=== PATIENT | male | born 1985 | race Caucasian/White ===

== ENCOUNTER 2017-04-23 17:17 | Emergency (ER) | payer SELFPAY ==
[~2017-04-23] VITALS: Ht 175.3 cm; Wt 81.6 kg
[2017-04-23 17:36] VITALS: BP 121/78
[2017-04-23] MEDS ORDERED: NACL 0.9% 1,000 ML IV ONE (17:55)
--- NOTE | 2017-04-23 18:15 | NUR ---
PT TO BED 6 BY EMS
--- NOTE | 2017-04-23 18:43 | NUR ---
32 YO MALE BIB EMS C/O ALCOHOL INTOXICATION TODAY, PER MEDIC PT STATES HE DRANK A BOTTLE OF VODKA TODAY. A&OX1, VSS, GURNEY TO LOWEST LEVEL, BED RAIL UP, RESTING WITH EYES CLEANED AND CHANGED PT IN TO A GOWN, NO DISTRESS NOTED AT THIS TIME.
--- NOTE | 2017-04-23 19:17 | NUR ---
REPORT GIVEN TO GERI SIMMONS.
--- NOTE | 2017-04-23 19:18 | NUR ---
RECEIVED REPORT FROM IRIS SHEARER. PATIENT IS ASLEEP AT THIS TIME. NO SIGNS OF DISTRESS. CONDOM CATH IN PLACE AT THIS TIME. WILL CONTINUE TO MONITOR.
--- NOTE | 2017-04-23 20:15 | NUR ---
PT REMOVED HIS CONDOM CATH AND HIS CHEST LEADS AND PULSE OXIMETER. CHARGE NURSE AWARE. DR. EL AT BEDSIDE EVALUATING PATIENT.
--- NOTE | 2017-04-23 20:18 | NUR ---
CLEAR YELLOW URINE OUTPUT , 400ML VIA CONDOM CATH.
--- NOTE | 2017-04-23 20:34 | NUR ---
PT AWAKE, TALKING TO HIMSELF. RESTING COMFORTABLY ON BED. NO SIGNS OF DISTRESS NOTED.
--- NOTE | 2017-04-23 21:10 | NUR ---
PT ASKING FOR SOMTHING TO EAT. DR. EL SAID OK TO GIVE PATIENT. ATM MANAGER MULUGETA RN NOTIFIED.
--- NOTE | 2017-04-23 21:30 | NUR ---
PT REMOVED HIS IV CATH, IV CATH INTACT, NO SIGNS OF BLEEDING. PT REFUSED TO BE COVERED IV SITE WITH GAUZE, CHARGE NURSE AWARE.
--- NOTE | 2017-04-23 21:40 | NUR ---
PT PROVIDED WITH SNACKS AGAIN. HE ASKED FOR ANOTHER SANDWICH. PT TALKS TO HIMSELF. WILL CONTINUE YO MONITOR..
--- NOTE | 2017-04-23 22:40 | NUR ---
PT STARTED TO GET OUT OF BED, HE REMOVED HIS GOWN, CURSING. PAGED SECURITY. PT PROVIDED WITH NEW CLOTHES. SECURITY AT BEDSIDE. CHARGE NURSE AWARE.
[2017-04-23 23:52] VITALS: BP 115/78
--- NOTE | 2017-04-23 23:52 | NUR ---
PT'S MONEY $14.16 RETURNED TO PATIENT, CHARGE NURSE, SECURITY AT BEDSIDE. PT SIGNED ALL PAPERWORKS.
--- NOTE | 2017-04-23 23:52 | NUR ---
Patient discharged with v/s stable. Written and verbal after care instructions given and explained. Patient verbalized understanding. Ambulatory, STEAD[facility] GAIT . All questions addressed prior to discharge. Advised to follow up with PMD. PT GIVEN HOMELESS WAIVER FORM AND HOMELESS PACKET.
== END 2017-04-23 23:52 | disposition home or self-care (01) ==
LOC: MED 17:17
DX: F10.129 Alcohol abuse with intoxication, unspecified (principal); Y90.9 Presence of alcohol in blood, level not specified
CPT/HCPCS: 36415; 96360; 99284; G0482; J7030